=== PATIENT | female | born 1980 | race Hispanic/Latino ===

== ENCOUNTER 2020-05-18 06:03 | Day surgery (SDC) | payer OTHER, SELFPAY ==
[2020-05-14 10:35] VITALS: BMI 21.6
[2020-05-18] MEDS ORDERED: Fentanyl 100 MCG/2 ML VIAL ONE ×3 (06:26→12:40)
[2020-05-18] MEDS ORDERED: Dexmedetomidine 200 MCG/2 ML VIAL ONE (06:26)
[2020-05-18] MEDS ORDERED: Gentamicin 80 MG/2 ML VIAL ONE (06:46)
[2020-05-18] MEDS ORDERED: Bupivacaine 0.25% HCL 30 ML VIAL ONE (06:46)
[2020-05-18] MEDS ORDERED: Lidocaine 1% (PF) 30 ML VIAL ONE (06:46)
[2020-05-18] MEDS ORDERED: EPINEPHrine 1 MG/ML AMP ONE (06:46)
[2020-05-18] MEDS ORDERED: Heparin 5,000 UNITS/ML VIAL ONE (07:14)
[2020-05-18] MEDS ORDERED: ePHEDrine 50 MG/ML VIAL ONE (07:39)
[2020-05-18] MEDS ORDERED: Ondansetron PF 4 MG/2 ML Vial ONE (07:39)
[2020-05-18] MEDS ORDERED: PHENYLEPHRINE-NS 100 MCG/ML 10 ML SYRINGE ONE (07:39)
[2020-05-18] MEDS ORDERED: PROPOFOL 200 MG/20 ML VIAL ONE (07:39)
[2020-05-18] MEDS ORDERED: Dexamethasone 20 MG/5 ML VIAL ONE (07:39)
[2020-05-18] MEDS ORDERED: Glycopyrrolate 0.2 MG/ML 5 ML SYRINGE ONE (07:39)
[2020-05-18] MEDS ORDERED: Lidocaine 1% PF 5 ML VIAL ONE (07:39)
[2020-05-18] MEDS ORDERED: Rocuronium Bromide 10 MG/ML (10ML VIAL) ONE (07:39)
[2020-05-18] MEDS ORDERED: HYDROcodone/Acetaminophen 5/325 mg Tablet ONE (14:37)
== END 2020-05-18 15:15 | disposition home or self-care (01) ==
LOC: SDC 06:03
PROVIDERS: ATTEND Plastic Surgery
PROC: 0J080ZZ Alteration of Abdomen Subcutaneous Tissue and Fascia, Open Approach (ICD-10-PCS; principal; 2020-05-18)
PROC: 0H0V3ZZ Alteration of Bilateral Breast, Percutaneous Approach (ICD-10-PCS; principal; 2020-05-18)
PROC: 0H0V0JZ Alteration of Bilateral Breast with Synthetic Substitute, Open Approach (ICD-10-PCS; principal; 2020-05-18)
DX: Z41.1 Encounter for cosmetic surgery (principal); N64.82 Hypoplasia of breast; E88.1 Lipodystrophy, not elsewhere classified; E65 Localized adiposity
CPT/HCPCS: 88305; J0171; J0690; J1100; J1580; J1644; J2001; J2405; J2704; J3010; J3370; J3490; L8600; S0020